=== PATIENT | male | born 1950 | race African-American/Black ===

== ENCOUNTER 2020-09-24 23:03 | Inpatient (IN) | payer MEDICARE, MEDICAID ==
[~2020-09-24] VITALS: Ht 185.4 cm; Wt 89.8 kg
[2020-09-24 23:03] VITALS: BP 140/85
[~2020-09-24 23:03] MED LIST: AMLO10TA80 PO; AMLO5TAB88 MT; ASPI-1497 MT; ASPI-1497 PO; CYCL10TA7 PO; CYCL5TAB PO; ERGO50CA PO; HYDR-4346 MT; LISI-186 MT; LISI-186 PO; MAGN250T29 MT; ZOLP10TA2 PO
[2020-09-25] MEDS ORDERED: NALOXONE HCL 0.4 MG/ML 1ML VIAL IV PRN (00:15)
[2020-09-25] MEDS ORDERED: ACETAMINOPHEN 325MG TABLET PO PRN (00:15)
[2020-09-25] MEDS ORDERED: NALOXONE HCL 0.4MG/ML VIAL IV PRN (00:30)
[2020-09-25] MEDS ORDERED: ONDANSETRON HCL 4MG TABLET PO PRN (01:00)
[2020-09-25] MEDS ORDERED: CLONIDINE 0.1MG TABLET PO PRN (01:00)
[2020-09-25] MEDS: HYDROCODONE/ACETAMINOPHEN 10/325MG TABLET PO PRN ×4 (01:15→21:09)
[2020-09-25] MEDS: CYCLOBENZAPRINE 10MG TABLET PO PRN (06:15)
[2020-09-25 06:28] LABS: BASOPHILS % 0.8 % (0.0-2.0); EOSINOPHILS % 4.2 % (0.0-5.0); HEMATOCRIT. 32.3 % (42.0-52.0); HEMOGLOBIN. 10.4 g/dL (14.0-18.0); LYMPHOCYTES % 31.8 % (20.0-50.0); MEAN CORPUSCULAR HEMOGLOBIN 26.7 pg (28.0-32.0); MEAN CORPUSCULAR VOLUME 82.7 fL (80.0-94.0); MEAN PLATELET VOLUME 6.6 fl (7.4-10.4); MONOCYTES % 14.5 % (2.0-8.0); NEUTROPHILS % 48.7 % (40.0-76.0); PLATELET 284 x1000/uL (130-400); RED BLOOD CELL COUNT 3.91 mill/uL (4.7-6.1); RED CELL DISTRIBUTION WIDTH 13.8 % (11.6-14.6)
[2020-09-25 06:44] LABS: CHLORIDE 104 mEq/L (98-107)
[2020-09-25 08:00] VITALS: BP 128/60
[2020-09-25] MEDS: ENOXAPARIN 40MG/0.4ML SYR SUBCUT SCH (08:53)
[2020-09-25] MEDS: MULTIVITAMINS,THER W-MINERALS TABLET PO SCH (08:53)
[2020-09-25] MEDS: CALCIUM 1250MG TABLET (500MG ELEMENTAL CALCIUM) PO SCH (08:53)
[2020-09-25] MEDS: VANCOMYCIN 1 G PREMIX 200 ML IV SCH ×2 (10:05→20:57)
[2020-09-25] MEDS: DOCUSATE SODIUM 100MG CAPSULE PO PRN (16:05)
[2020-09-25] MEDS: BISACODYL 5MG TABLET PO PRN (16:05)
[2020-09-25] MEDS: OXYCODONE HCL 5MG TABLET PO PRN (18:58)
[2020-09-25 20:00] VITALS: BP 147/75
[2020-09-26] MEDS: CYCLOBENZAPRINE 10MG TABLET PO PRN ×2 (01:16→22:44)
[2020-09-26] MEDS: OXYCODONE HCL 5MG TABLET PO PRN ×2 (01:19→17:16)
[2020-09-26] MEDS: LACTULOSE 20G/30ML UDC PO SCH ×3 (06:06→14:00)
[2020-09-26] MEDS: HYDROCODONE/ACETAMINOPHEN 10/325MG TABLET PO PRN ×2 (06:07→22:36)
[2020-09-26 07:19] LABS: BASOPHILS % 1.1 % (0.0-2.0); EOSINOPHILS % 4.2 % (0.0-5.0); HEMATOCRIT. 31.4 % (42.0-52.0); HEMOGLOBIN. 10.4 g/dL (14.0-18.0); LYMPHOCYTES % 33.8 % (20.0-50.0); MEAN CORPUSCULAR HEMOGLOBIN 27.1 pg (28.0-32.0); MEAN CORPUSCULAR VOLUME 81.8 fL (80.0-94.0); MEAN PLATELET VOLUME 6.8 fl (7.4-10.4); MONOCYTES % 10.7 % (2.0-8.0); NEUTROPHILS % 50.2 % (40.0-76.0); PLATELET 290 x1000/uL (130-400); RED BLOOD CELL COUNT 3.84 mill/uL (4.7-6.1); RED CELL DISTRIBUTION WIDTH 13.8 % (11.6-14.6)
[2020-09-26 08:00] VITALS: BP 109/76
[2020-09-26 08:02] VITALS: BP 109/76
[2020-09-26 08:17] LABS: CHLORIDE 102 mEq/L (98-107)
[2020-09-26 08:24] LABS: TOTAL IRON BINDING CAPACITY 276 ug/dL (250-450)
[2020-09-26] MEDS: VANCOMYCIN 1 G PREMIX 200 ML IV SCH ×2 (08:52→22:35)
[2020-09-26] MEDS: MULTIVITAMINS,THER W-MINERALS TABLET PO SCH (08:52)
[2020-09-26] MEDS: CALCIUM 1250MG TABLET (500MG ELEMENTAL CALCIUM) PO SCH (08:52)
[2020-09-26] MEDS: ENOXAPARIN 40MG/0.4ML SYR SUBCUT SCH (08:53)
[2020-09-26] MEDS ORDERED: NAPROXEN 250MG TABLET PO PRN (12:45)
[2020-09-26 20:00] VITALS: BP 112/67
[2020-09-27] MEDS: HYDROCODONE/ACETAMINOPHEN 10/325MG TABLET PO PRN ×2 (06:26→16:25)
[2020-09-27] MEDS: DOCUSATE SODIUM 100MG CAPSULE PO PRN ×2 (06:30→16:24)
[2020-09-27 07:45] VITALS: BP 134/71
[2020-09-27] MEDS: CALCIUM 1250MG TABLET (500MG ELEMENTAL CALCIUM) PO SCH ×2 (08:59→09:00)
[2020-09-27] MEDS: MULTIVITAMINS,THER W-MINERALS TABLET PO SCH ×2 (08:59→09:00)
[2020-09-27] MEDS: ENOXAPARIN 40MG/0.4ML SYR SUBCUT SCH (09:02)
[2020-09-27] MEDS: OXYCODONE HCL 5MG TABLET PO PRN (09:08)
[2020-09-27 12:40] LABS: CHLORIDE 101 mEq/L (98-107)
[2020-09-27] MEDS: VANCOMYCIN 1250MG in DEXTROSE 5% WATER 250ML IV SCH (15:30)
[2020-09-27] MEDS: CYCLOBENZAPRINE 10MG TABLET PO PRN (16:24)
[2020-09-27 20:00] VITALS: BP 122/74
[2020-09-28] MEDS: OXYCODONE HCL 5MG TABLET PO PRN (00:29)
[2020-09-28] MEDS: CYCLOBENZAPRINE 10MG TABLET PO PRN (00:29)
[2020-09-28] MEDS: VANCOMYCIN 1250MG in DEXTROSE 5% WATER 250ML IV SCH ×2 (03:01→16:38)
[2020-09-28 08:38] VITALS: BP 135/89
[2020-09-28] MEDS: ENOXAPARIN 40MG/0.4ML SYR SUBCUT SCH (09:07)
[2020-09-28] MEDS: HYDROCODONE/ACETAMINOPHEN 10/325MG TABLET PO PRN ×2 (09:08→17:29)
[2020-09-28] MEDS ORDERED: NAPROXEN 250MG TABLET PO SCH (10:45)
[2020-09-28] MEDS: LIDOCAINE 5% PATCH TOP SCH (12:00)
[2020-09-28] MEDS: DOCUSATE SODIUM 100MG CAPSULE PO PRN (16:38)
[2020-09-28] MEDS: NAPROXEN 250MG TABLET PO PRN (17:29)
[2020-09-28 20:00] VITALS: BP 130/71
[2020-09-29] MEDS: HYDROCODONE/ACETAMINOPHEN 10/325MG TABLET PO PRN ×3 (01:00→20:47)
[2020-09-29] MEDS: CYCLOBENZAPRINE 10MG TABLET PO PRN (03:47)
[2020-09-29] MEDS: VANCOMYCIN 1250MG in DEXTROSE 5% WATER 250ML IV SCH ×2 (03:57→17:14)
[2020-09-29] MEDS: NAPROXEN 250MG TABLET PO PRN ×2 (05:55→17:37)
[2020-09-29 08:01] VITALS: BP 119/65
[2020-09-29 08:22] LABS: CHLORIDE 104 mEq/L (98-107)
[2020-09-29] MEDS: DOCUSATE SODIUM 100MG CAPSULE PO PRN (08:28)
[2020-09-29] MEDS: ENOXAPARIN 40MG/0.4ML SYR SUBCUT SCH (08:28)
[2020-09-29] MEDS: LIDOCAINE 5% PATCH TOP SCH ×2 (08:28→08:32)
[2020-09-29] MEDS: MULTIVITAMINS,THER W-MINERALS TABLET PO SCH (08:28)
[2020-09-29] MEDS: CALCIUM 1250MG TABLET (500MG ELEMENTAL CALCIUM) PO SCH (08:28)
[2020-09-29 12:25] VITALS: BP 125/83
[2020-09-29] MEDS: OXYCODONE HCL 5MG TABLET PO PRN (12:27)
[2020-09-29 20:00] VITALS: BP 135/72
[2020-09-30 00:12] VITALS: BP 128/72
[2020-09-30] MEDS: CYCLOBENZAPRINE 10MG TABLET PO PRN (00:12)
[2020-09-30 04:29] VITALS: BP 120/66
[2020-09-30] MEDS: NAPROXEN 250MG TABLET PO PRN ×2 (04:29→17:12)
[2020-09-30] MEDS: VANCOMYCIN 1250MG in DEXTROSE 5% WATER 250ML IV SCH ×2 (05:49→17:12)
[2020-09-30 08:00] VITALS: BP 132/61
[2020-09-30] MEDS: LIDOCAINE 5% PATCH TOP SCH (09:00)
[2020-09-30] MEDS: ENOXAPARIN 40MG/0.4ML SYR SUBCUT SCH (09:09)
[2020-09-30] MEDS: MULTIVITAMINS,THER W-MINERALS TABLET PO SCH (09:09)
[2020-09-30] MEDS: CALCIUM 1250MG TABLET (500MG ELEMENTAL CALCIUM) PO SCH (09:09)
[2020-09-30] MEDS: OXYCODONE HCL 5MG TABLET PO PRN (09:11)
[2020-09-30] MEDS: DOCUSATE SODIUM 100MG CAPSULE PO PRN (14:53)
[2020-09-30] MEDS ORDERED: LACTULOSE 20G/30ML UDC PO NR (15:15)
[2020-09-30 20:00] VITALS: BP 141/82
[2020-09-30] MEDS: HYDROCODONE/ACETAMINOPHEN 10/325MG TABLET PO PRN (20:45)
[2020-10-01] MEDS: CYCLOBENZAPRINE 10MG TABLET PO PRN (02:48)
[2020-10-01] MEDS: MULTIVITAMINS,THER W-MINERALS TABLET PO SCH (07:53)
[2020-10-01] MEDS: DOCUSATE SODIUM 100MG CAPSULE PO PRN (07:54)
[2020-10-01] MEDS: CALCIUM 1250MG TABLET (500MG ELEMENTAL CALCIUM) PO SCH (07:54)
[2020-10-01] MEDS: BISACODYL 5MG TABLET PO PRN (07:54)
[2020-10-01] MEDS: ENOXAPARIN 40MG/0.4ML SYR SUBCUT SCH (07:58)
[2020-10-01] MEDS: HYDROCODONE/ACETAMINOPHEN 10/325MG TABLET PO PRN ×3 (07:59→19:57)
[2020-10-01 08:20] VITALS: BP 147/87
[2020-10-01] MEDS: LIDOCAINE 5% PATCH TOP SCH (08:39)
[2020-10-01] MEDS: NAPROXEN 250MG TABLET PO PRN ×2 (09:04→22:51)
[2020-10-01] MEDS: OXYCODONE HCL 5MG TABLET PO PRN (13:03)
[2020-10-01 20:00] VITALS: BP 124/72
[2020-10-02] MEDS: CYCLOBENZAPRINE 10MG TABLET PO PRN (01:31)
[2020-10-02] MEDS: OXYCODONE HCL 5MG TABLET PO PRN ×3 (06:48→19:16)
[2020-10-02 07:48] VITALS: BP 133/99
[2020-10-02 07:51] LABS: BASOPHILS % 0.8 % (0.0-2.0); EOSINOPHILS % 3.8 % (0.0-5.0); HEMATOCRIT. 33.1 % (42.0-52.0); HEMOGLOBIN. 11.2 g/dL (14.0-18.0); LYMPHOCYTES % 34.9 % (20.0-50.0); MEAN CORPUSCULAR HEMOGLOBIN 27.3 pg (28.0-32.0); MEAN CORPUSCULAR VOLUME 80.6 fL (80.0-94.0); MEAN PLATELET VOLUME 6.6 fl (7.4-10.4); MONOCYTES % 9.9 % (2.0-8.0); NEUTROPHILS % 50.6 % (40.0-76.0); PLATELET 317 x1000/uL (130-400); RED BLOOD CELL COUNT 4.11 mill/uL (4.7-6.1); RED CELL DISTRIBUTION WIDTH 14.2 % (11.6-14.6)
[2020-10-02 08:12] LABS: CHLORIDE 107 mEq/L (98-107)
[2020-10-02] MEDS: MULTIVITAMINS,THER W-MINERALS TABLET PO SCH (08:44)
[2020-10-02] MEDS: CALCIUM 1250MG TABLET (500MG ELEMENTAL CALCIUM) PO SCH (08:44)
[2020-10-02] MEDS: ENOXAPARIN 40MG/0.4ML SYR SUBCUT SCH (08:45)
[2020-10-02] MEDS: LIDOCAINE 5% PATCH TOP SCH (08:45)
[2020-10-02] MEDS: NAPROXEN 250MG TABLET PO PRN (12:18)
[2020-10-02] MEDS: BISACODYL 5MG TABLET PO PRN (12:18)
[2020-10-02] MEDS: HYDROCODONE/ACETAMINOPHEN 10/325MG TABLET PO PRN (13:57)
[2020-10-02 15:10] LABS: 25-HYDROXY VITAMIN D3 26 ng/mL (.)
[2020-10-02] MEDS ORDERED: ERGOCALCIFEROL 50000UNITS CAPSULE PO SCH (15:30)
[2020-10-02] MEDS ORDERED: NA PHOS,M-B/NA PHOS,DI-BA ENEMA 118ML PR NR (19:15)
[2020-10-02 21:55] VITALS: BP 128/66
[2020-10-03] MEDS: CYCLOBENZAPRINE 10MG TABLET PO PRN (01:12)
[2020-10-03] MEDS: HYDROCODONE/ACETAMINOPHEN 10/325MG TABLET PO PRN (06:42)
[2020-10-03 07:36] VITALS: BP 137/96
[2020-10-03] MEDS: LIDOCAINE 5% PATCH TOP SCH (08:51)
[2020-10-03] MEDS: CALCIUM 1250MG TABLET (500MG ELEMENTAL CALCIUM) PO SCH (08:52)
[2020-10-03] MEDS: ENOXAPARIN 40MG/0.4ML SYR SUBCUT SCH (08:52)
[2020-10-03] MEDS: MULTIVITAMINS,THER W-MINERALS TABLET PO SCH (08:52)
[2020-10-03] MEDS: OXYCODONE HCL 5MG TABLET PO PRN (08:58)
[2020-10-03 16:15] VITALS: BP 129/90
== END 2020-10-03 19:06 | disposition home health service (06) | DRG 605 ==
PROVIDERS: ADMIT Physical Medicine & Rehabilitation Spinal Cord Injury Medicine; ATTEND Internal Medicine
DX: S80.11XA Contusion of right lower leg, initial encounter (principal); M25.561 Pain in right knee; I10 Essential (primary) hypertension; R53.81 Other malaise; R26.9 Unspecified abnormalities of gait and mobility; D64.9 Anemia, unspecified; E55.9 Vitamin D deficiency, unspecified; K57.30 Diverticulosis of large intestine without perforation or abscess without bleeding; M17.10 Unilateral primary osteoarthritis, unspecified knee; M48.00 Spinal stenosis, site unspecified; F09 Unspecified mental disorder due to known physiological condition; F39 Unspecified mood [affective] disorder; G89.29 Other chronic pain; G25.81 Restless legs syndrome; S80.01XA Contusion of right knee, initial encounter; S80.221A Blister (nonthermal), right knee, initial encounter; W01.0XXA Fall on same level from slipping, tripping and stumbling without subsequent striking against object, initial encounter; I72.3 Aneurysm of iliac artery; R94.6 Abnormal results of thyroid function studies; N28.1 Cyst of kidney, acquired; Z79.899 Other long term (current) drug therapy; Z79.82 Long term (current) use of aspirin; Y93.89 Activity, other specified; Y92.89 Other specified places as the place of occurrence of the external cause; Y99.8 Other external cause status
CPT/HCPCS: 36415; 80048; 80053; 80202; 82306; 82728; 83540; 83550; 84134; 85025; 93970; 97110; 97116; 97162; 97166; 97530; 97535; J1650; J3370; J7060; Q0162

== ENCOUNTER 2023-01-31 12:00 | Emergency (ER) | payer MEDICARE, MEDICAID ==
[~2023-01-31] VITALS: Ht 175.3 cm; Wt 90.0 kg
[~2023-01-31 12:00] MED LIST changes: +CIPHCO EACH EAR; +CYCL10TA21 PO; -CYCL10TA7 PO; -CYCL5TAB PO; +HYDR-4009 MT; -HYDR-4346 MT; -LISI-186 PO
[2023-01-31 12:03] VITALS: BP 151/86; PULSE 76; RESP 16; TEMP 97.6; O2SAT 97
[2023-01-31] MEDS ORDERED: AMOX-494 MT (21:00)
== END 2023-01-31 19:09 | disposition left against medical advice (07) ==
LOC: ER 12:00
DX: R51.9 Headache, unspecified (principal)
CPT/HCPCS: 99281

== ENCOUNTER 2023-01-31 19:48 | Emergency (ER) | payer MEDICARE, MEDICAID ==
[~2023-01-31] VITALS: Ht 188 cm; Wt 105.0 kg
[2023-01-31 19:52] VITALS: O2SAT 96
[2023-01-31] MEDS ORDERED: METOCLOPRAMIDE HCL 10MG TABLET PO ONE (20:30)
[2023-01-31] MEDS ORDERED: ACETAMINOPHEN 325MG TABLET PO ONE (20:30)
[2023-01-31] MEDS ORDERED: AMOX-494 MT (21:00)
[2023-01-31 21:53] VITALS: PULSE 82; RESP 15; TEMP 98.2
== END 2023-01-31 21:54 | disposition home or self-care (01) ==
LOC: ER 19:48
DX: H66.91 Otitis media, unspecified, right ear (principal); R51.9 Headache, unspecified; I10 Essential (primary) hypertension; Z98.890 Other specified postprocedural states; Z91.013 Allergy to seafood; Z88.5 Allergy status to narcotic agent
CPT/HCPCS: 99284; 70450; J8597

== ENCOUNTER 2023-02-05 15:26 | Emergency (ER) | payer MEDICARE, MEDICAID ==
[~2023-02-05] VITALS: Ht 185.4 cm; Wt 103.0 kg
[~2023-02-05 15:26] MED LIST changes: +AMOX-494 MT
[2023-02-05 15:51] VITALS: BP 167/95; PULSE 90; RESP 16; O2SAT 98
[2023-02-05] MEDS ORDERED: IBUP-2030 MT (18:50)
[2023-02-05] MEDS ORDERED: AMOX600S39 MT (18:50)
[2023-02-05] MEDS ORDERED: TOPUD MT (18:50)
[2023-02-05] MEDS ORDERED: P50 MT (18:54)
[2023-02-05] MEDS ORDERED: FLUT9.9S BOTHNSTRLS (18:54)
[2023-02-05] MEDS ORDERED: LORA10TA64 MT (18:54)
[2023-02-05 19:00] VITALS: TEMP 98.1
[2023-02-05] MEDS ORDERED: METOCLOPRAMIDE HCL 10MG TABLET PO ONE (19:00)
[2023-02-05] MEDS ORDERED: ACETAMINOPHEN 325MG TABLET PO ONE (19:00)
== END 2023-02-05 20:30 | disposition home or self-care (01) ==
LOC: ER 15:26
DX: H70.91 Unspecified mastoiditis, right ear (principal); J30.9 Allergic rhinitis, unspecified; I10 Essential (primary) hypertension; Z98.890 Other specified postprocedural states; Z91.013 Allergy to seafood; Z88.5 Allergy status to narcotic agent; Z88.8 Allergy status to other drugs, medicaments and biological substances
CPT/HCPCS: 99284; 70450; J8597